=== PATIENT | male | born 1975 | race Caucasian/White ===

== ENCOUNTER 2017-04-26 20:12 | Emergency (ER) | payer SELFPAY ==
[~2017-04-26] VITALS: Ht 180.3 cm; Wt 99.8 kg
[2017-04-26 20:31] VITALS: BP 127/95
--- NOTE | 2017-04-26 20:42 | NUR ---
TO ER OF3
[2017-04-26] MEDS ORDERED: DICYCLOMINE HCL LIQUID 20 MG, ALUMINUM HYD/MAG/SIMETHICONE 30 ML, LIDOCAINE VISCOUS 2% ... PO ONE ×3 (21:00)
[2017-04-26] MEDS ORDERED: KETOROLAC 30 MG/ML VIAL IM ONE (21:00)
--- NOTE | 2017-04-26 21:00 | NUR ---
Patient being evaluated by physician jaziel de leon and carried out.
[2017-04-26 21:31] LABS: APPEARANCE,URINE CLEAR (CLEAR); BILIRUBIN,URINE NEGATIVE (NEGATIVE); BLOOD, URINE NEGATIVE (NEGATIVE); COLOR,URINE YELLOW (YELLOW); LEUKOCYTE ESTERASE ,URINE NEGATIVE (NEGATIVE); NITRITE, URINE NEGATIVE (NEGATIVE); PROTEIN,URINE NEGATIVE (NEGATIVE); UGLUCOSE NEGATIVE (NEGATIVE); UROBILINOGEN,URINE 0.2 EU/dL (0.2 - 1)
[2017-04-26 21:39] LABS: AMPHETAMINE, URINE NEG. ng/ml (NEG <=1000); BARBITURATE, URINE NEG. ng/ml (NEG <=200); BENZODIAZEPINE, URINE NEG. ng/mL (NEG <=200); CANNABINOID, URINE NEG. ng/mL (NEG <=50); COCAINE, URINE NEG. ng/mL (NEG <=300); OPIATE, URINE NEG. ng/mL (NEG <=2000); PHENCYCLIDINE SCREEN,URINE NEG. ng/mL (NEG <=25)
[2017-04-26 21:39] LABS: BASOPHILS # (AUTO) 0.3 K/uL (0.00-0.22); EOSINOPHILS # (AUTO) 0.4 K/uL (0-0.4); EOSINOPHILS % (AUTO) 4.4 % (0.0-4.0); HEMATOCRIT 38.8 % (36-52); HEMOGLOBIN 12.9 g/dL (12.0-18.0); LYMPHOCYTES # (AUTO) 2.7 K/uL (2.0-11.5); LYMPHOCYTES % (AUTO) 31.5 % (20.5-51.1); MEAN CORPUSCULAR HEMOGLOBIN 28 pg (27-31); MEAN CORPUSCULAR HGB CONC 33 g/dL (33-37); MEAN CORPUSCULAR VOLUME 85 fL (80-94); MONOCYTES # (AUTO) 0.4 K/uL (0.8-1.0); NEUTROPHILS # (AUTO) 4.7 K/uL (1.8-7.7); PLATELET COUNT (AUTO) 335 K/uL (140-450); RED BLOOD CELL COUNT(AUTO) 4.57 MIL/uL (4.20-6.10); RED CELL DISTRIBUTION WIDTH 12.9 % (11.6-13.7); WHITE BLOOD COUNT (AUTO) 8.5 K/uL (4.8-10.8)
[2017-04-26 21:48] LABS: ANION GAP 12.3 (8-16); CALCIUM 8.1 mg/dL (8.5-10.1); CARBON DIOXIDE 23.6 mmol/L (21-32); CREATININE 0.8 mg/dL (0.6-1.3); POTASSIUM 3.9 mmol/L (3.5-5.1)
[2017-04-26 21:54] LABS: ALBUMIN 3.3 g/dL (3.4-5.0); TOTAL BILIRUBIN 0.7 mg/dL (0.0-1.0); TOTAL PROTEIN, SERUM 6.9 g/dL (6.4-8.2)
[2017-04-26 22:27] VITALS: BP 127/95
--- NOTE | 2017-04-26 22:27 | NUR ---
Patient discharged with v/s stable. Written and verbal after care instructions given and explained. Patient alert, oriented and verbalized understanding of instructions. Ambulatory with steady gait. All questions addressed prior to discharge. ID band removed. Patient advised to follow up with PMD. Rx of naprosyn, norco given. Patient educated on indication of medication including possible reaction and side effects. Opportunity to ask questions provided and answered.
== END 2017-04-26 22:28 | disposition home or self-care (01) ==
LOC: MED 20:12
DX: M54.5 Low back pain (principal)
CPT/HCPCS: 36415; 74176; 80053; 80305; 81003; 83690; 85025; 96372; 99285; J1885

== ENCOUNTER 2018-08-20 16:14 | Emergency (ER) | payer SELFPAY ==
[~2018-08-20] VITALS: Ht 180.3 cm; Wt 98.5 kg
[2018-08-20 16:39] VITALS: BP 183/84
--- NOTE | 2018-08-20 16:43 | NUR ---
AMBULATES BACK TO THE LOBBY WAITING FOR AVAILABLE BED
--- NOTE | 2018-08-20 18:13 | NUR ---
PATIENT PRESENTS TO ED WITH THE CHIEF C/O LOWER BACK PAIN. PT STATES PAIN STARTED 2 WEEKS AGO. DENIES N/V/D; SKIN IS PINK/WARM/DRY; AAOX4 WITH EVEN AND STEADY GAIT; LUNGS CLEAR BL; HR EVEN AND REGULAR; PT DENIES ANY FEVER, CP, SOB, OR COUGH AT THIS TIME; PATIENT STATES LOWER BACK PAIN OF 9/10 THAT RADIATES TO LEFT BUTTOCK AT THIS TIME; VSS; PATIENT POSITIONED FOR COMFORT; HOB ELEVATED; BEDRAILS UP X2; BED DOWN. ER MD MADE AWARE OF PT STATUS.
--- NOTE | 2018-08-20 19:22 | NUR ---
REPORT GIVEN TO PHILATELIC CONSULTANT RN BALDOMERO FOR CONTINUITY OF CARE. PT ON STABLE CONDITION.
[2018-08-20] MEDS: predniSONE 20 MG TAB PO ONE (19:27)
[2018-08-20] MEDS: MORPHINE SULFATE 2 MG/ML SYR IM ONE (19:28)
--- NOTE | 2018-08-20 19:37 | NUR ---
RECEIVED REPORT FROM AM NURSE. PT RESTING IN BED, VSS, PT REPORTS 9/10 BACK PAIN FROM [place], MEDS GIVEN, WILL REASSESS.
[2018-08-20 19:49] VITALS: BP 132/75
--- NOTE | 2018-08-20 19:50 | NUR ---
Patient discharged with v/s stable. Written and verbal after care instructions given and explained. Patient alert, oriented and verbalized understanding of instructions. Ambulatory with steady gait. All questions addressed prior to discharge. ID band removed. Patient advised to follow up with PMD. Rx of ROBAXIN 500MG, MEDROL 4MG, TRAMADOL 50MG, given. Patient educated on indication of medication including possible reaction and side effects. Opportunity to ask questions provided and answered.
== END 2018-08-20 19:49 | disposition home or self-care (01) ==
LOC: MED 16:14
DX: G89.29 Other chronic pain (principal); M54.42 Lumbago with sciatica, left side
CPT/HCPCS: 81002; 96372; 99283; J2270; J7512

== ENCOUNTER 2019-03-26 20:25 | Emergency (ER) | payer MEDICAID ==
[~2019-03-26] VITALS: Ht 180.3 cm; Wt 108.9 kg
[2019-03-26 20:41] VITALS: BP 140/90
--- NOTE | 2019-03-26 20:41 | NUR ---
TO BED # 12 AMBULATORY
--- NOTE | 2019-03-26 20:52 | NUR ---
43 y/o M presented to ED with R eye pain x 2 days, but pain is worse today. AAOx4. 8/10 pain, burning pain. R eye injected. no discharge noted. expressed light sensitivity. PERRL presented. bed in lowest position. ERMD notified. Will continue to monitor.
[2019-03-26] MEDS ORDERED: TETRACAINE HCL/PF 0.5% OPTH 4 ML BTL OP ONE (21:15)
[2019-03-26] MEDS ORDERED: FLUORESCEIN OPTH STRIP 0.6 MG OP ONE (21:15)
--- NOTE | 2019-03-26 22:45 | NUR ---
family at bedside. Will continue to monitor.
--- NOTE | 2019-03-26 23:05 | NUR ---
Patient discharged with v/s stable. Written and verbal after care instructions given and explained. Patient alert, oriented and verbalized understanding of instructions. Ambulatory with steady gait. All questions addressed prior to discharge. ID band removed. Patient advised to follow up with PMD. Rx of Gentamicin and Ketorolac given. Patient educated on indication of medication including possible reaction and side effects. Opportunity to ask questions provided and answered.
== END 2019-03-26 23:05 | disposition home or self-care (01) ==
LOC: MED 20:25
DX: H10.9 Unspecified conjunctivitis (principal)
CPT/HCPCS: 99283

== ENCOUNTER 2019-04-01 17:05 | Emergency (ER) | payer MEDICAID ==
[~2019-04-01] VITALS: Ht 180.3 cm; Wt 111.3 kg
[2019-04-01 17:07] VITALS: BP 132/70
--- NOTE | 2019-04-01 17:13 | NUR ---
PATIENT AMBULATED TO BED 3.
--- NOTE | 2019-04-01 17:30 | NUR ---
C/O RIGHT EYE REDNESS, SWOLLEN & PAIN X 1 WEEK. MED HX : DENIES
[2019-04-01 18:20] VITALS: BP 132/70
--- NOTE | 2019-04-01 18:22 | NUR ---
Patient discharged with v/s stable. Written and verbal after care instructions given and explained. Patient verbalized understanding. Ambulatory with steady gait. All questions addressed prior to discharge. Advised to follow up with PMD.
== END 2019-04-01 18:22 | disposition home or self-care (01) ==
LOC: MED 17:05
DX: H20.9 Unspecified iridocyclitis (principal)
CPT/HCPCS: 99281

== ENCOUNTER 2020-08-29 16:14 | Emergency (ER) | payer SELFPAY ==
[~2020-08-29] VITALS: Ht 177.8 cm; Wt 104.3 kg
[2020-08-29 16:19] VITALS: BP 120/95
--- NOTE | 2020-08-29 16:25 | NUR ---
PT C/O PROGRESSIVELY WORSENING LEFT FLANK PAIN ACCOMPAINED BY DSYURIA FOR 2 WEEKS. DENIES FEVER, CHILLS, HEMATURIA, BURNING/PAINFUL URINATION. DENIES TRAUMA/INJURY TO BACK. PT STATES THE PAIN WAKEN HIM UP DURING SLEEP. POSITIVE LEFT CVAT ON PALPATION. DENIES N/V/D; SKIN IS PINK/WARM/DRY; AAOX4 WITH EVEN AND STEADY GAIT; LUNGS CLEAR BL; HR EVEN AND REGULAR; PT DENIES ANY FEVER, CP, SOB, OR COUGH AT THIS TIME; PATIENT STATES PAIN OF 10/10 AT THIS TIME; VSS; PATIENT POSITIONED FOR COMFORT; HOB ELEVATED; BEDRAILS UP X1; BED DOWN. ER MD MADE AWARE OF PT STATUS.
--- NOTE | 2020-08-29 16:25 | NUR ---
PT TAKEN TO BED 6.
[2020-08-29 17:37] LABS: APPEARANCE,URINE CLEAR (CLEAR); BILIRUBIN,URINE NEGATIVE (NEGATIVE); BLOOD, URINE NEGATIVE (NEGATIVE); COLOR,URINE YELLOW (YELLOW); LEUKOCYTE ESTERASE ,URINE NEGATIVE (NEGATIVE); NITRITE, URINE NEGATIVE (NEGATIVE); UGLUCOSE NEGATIVE (NEGATIVE)
[2020-08-29 17:55] LABS: BASOPHILS # (AUTO) 0.1 K/uL (0.00-0.22); BASOPHILS % (AUTO) 0.8 % (0.0-2.0); EOSINOPHILS % (AUTO) 0.5 % (0.0-4.0); HEMATOCRIT 44.7 % (36-52); HEMOGLOBIN 15.2 g/dL (12.0-18.0); LYMPHOCYTES # (AUTO) 2.2 K/uL (2.0-11.5); LYMPHOCYTES % (AUTO) 23.7 % (20.5-51.1); MEAN CORPUSCULAR HEMOGLOBIN 29 pg (27-31); MEAN CORPUSCULAR HGB CONC 34 g/dL (33-37); MEAN CORPUSCULAR VOLUME 86.6 fL (80-94); MONOCYTES # (AUTO) 0.8 K/uL (0.8-1.0); MONOCYTES % (AUTO) 9.2 % (1.7-9.3); NEUTROPHILS % (AUTO) 65.8 % (42.2-75.2); PLATELET COUNT (AUTO) 273 K/uL (140-450); RED BLOOD CELL COUNT(AUTO) 5.17 MIL/uL (4.20-6.10); RED CELL DISTRIBUTION WIDTH 13.4 % (11.6-13.7); WHITE BLOOD COUNT (AUTO) 9.2 K/uL (4.8-10.8)
[2020-08-29 18:09] LABS: ALBUMIN 4.5 g/dL (3.4-5.0); ANION GAP 12.5 (8-16); CARBON DIOXIDE 26.6 mmol/L (21-32); CREATININE 1.1 mg/dL (0.6-1.3); POTASSIUM 4.1 mmol/L (3.5-5.1); TOTAL BILIRUBIN 1.9 mg/dL (0.0-1.0)
[2020-08-29 18:35] VITALS: BP 147/88
--- NOTE | 2020-08-29 18:35 | NUR ---
Patient discharged with v/s stable. Written and verbal after care instructions given and explained. Patient alert, oriented and verbalized understanding of instructions. Ambulatory with steady gait. All questions addressed prior to discharge. ID band removed. Patient advised to follow up with PMD. Rx of Valium and Ibuprofen given. Patient educated on indication of medication including possible reaction and side effects. Opportunity to ask questions provided and answered.
== END 2020-08-29 18:35 | disposition home or self-care (01) ==
LOC: MED 16:14
DX: M54.9 Dorsalgia, unspecified (principal); R10.9 Unspecified abdominal pain; R34 Anuria and oliguria
CPT/HCPCS: 36415; 80053; 81003; 83690; 85025; 99284

== ENCOUNTER 2020-11-29 10:55 | Emergency (ER) | payer SELFPAY ==
[~2020-11-29] VITALS: Ht 180.3 cm; Wt 99.8 kg
[2020-11-29 11:00] VITALS: BP 145/73
--- NOTE | 2020-11-29 11:10 | NUR ---
C/O LEFT EYE PAIN , SENSITIVE TO LIGHT X 2 DAYS. DENIES TRAUMA/INJURY. DENIES BLURRED VISION. PMH: DENIES
[2020-11-29] MEDS ORDERED: TETRACAINE 1% 2 ML AMP INJ ONE (11:20)
[2020-11-29] MEDS ORDERED: FLUORESCEIN OPTH STRIP 1 MG OP ONE (11:20)
[2020-11-29] MEDS ORDERED: TETRACAINE HCL/PF 0.5% OPTH 4 ML BTL ONE (11:21)
[2020-11-29 12:20] VITALS: BP 145/73
== END 2020-11-29 12:21 | disposition home or self-care (01) ==
LOC: MED 10:55
DX: H20.9 Unspecified iridocyclitis (principal)
CPT/HCPCS: 99283; J3490

== ENCOUNTER 2021-08-01 01:18 | Emergency (ER) | payer SELFPAY ==
[~2021-08-01] VITALS: Ht 180.3 cm; Wt 108.9 kg
[2021-08-01 01:23] VITALS: BP 130/80
--- NOTE | 2021-08-01 01:27 | NUR ---
PT AMBULATED TO LOBBY WITH STEADY AND EVEN GAIT.
--- NOTE | 2021-08-01 01:58 | NUR ---
PT AMBULATED TO BED 12 WITH STEADY AND EVEN GAIT.
--- NOTE | 2021-08-01 01:59 | NUR ---
Fracisco ortiz in [facility] - 08/01/21 at 0201 by JULIO PT TAKEN TO BED 12
--- NOTE | 2021-08-01 02:00 | NUR ---
ERMD AT BEDSIDE.
--- NOTE | 2021-08-01 02:01 | NUR ---
Fracisco ortiz in [facility] - 08/01/[address] at [address] Araya examining patient.
[2021-08-01] MEDS ORDERED: IBUP-2213 PO (02:10)
[2021-08-01] MEDS ORDERED: ACET-8386 PO (02:10)
[2021-08-01] MEDS: KETOROLAC 60 MG/2 ML VIAL IM ONE (02:13)
[2021-08-01 02:20] VITALS: BP 130/80
--- NOTE | 2021-08-01 02:20 | NUR ---
Patient discharged with v/s stable. Written and verbal after care instructions given and explained. Patient alert, oriented and verbalized understanding of instructions. Ambulatory with steady gait. All questions addressed prior to discharge. ID band removed. Patient advised to follow up with PMD. Rx of NORCO, MOTRIN given. Patient educated on indication of medication including possible reaction and side effects. Opportunity to ask questions provided and answered.
== END 2021-08-01 02:20 | disposition home or self-care (01) ==
LOC: MED 01:18
DX: M54.5 Low back pain (principal)
CPT/HCPCS: 96372; 99283; J1885

== ENCOUNTER 2022-01-20 17:21 | Emergency (ER) | payer BC ==
[~2022-01-20] VITALS: Ht 180.3 cm; Wt 112.0 kg
[~2022-01-20 17:21] MED LIST: ACET-8386 PO; IBUP-2213 PO
[2022-01-20 17:49] VITALS: BP 160/82
[2022-01-20] MEDS ORDERED: NACL 0.9% 1,000 ML IV ONE (18:10)
[2022-01-20] MEDS ORDERED: KETOROLAC 15 MG/ML VIAL IVP ONE (18:10)
--- NOTE | 2022-01-20 18:53 | NUR ---
BLOOD COLLECTED WALKED TO LAB
--- NOTE | 2022-01-20 19:08 | NUR ---
46 y/o Male BIB self for c/o of flank pain and dizzyness x 2- 3 days. Denies any recent trauma or falls. States his urine appears more concentrated and with a foul odor. Denies N/V/D and dysuria/hematuria. Has not had any STD checks in a few years. PmHx: sciatica, kidney infections Home meds: Denies Allergies: Denies
--- NOTE | 2022-01-20 19:23 | NUR ---
HANDOFF REPORT GIVEN TO DIMITRIOS POOLE.
[2022-01-20] MEDS ORDERED: ACETAMINOPHEN EXTRA STRENGTH 500 MG TAB PO ONE (19:30)
[2022-01-20 19:32] LABS: LYMPHOCYTES # (AUTO) 2.2 K/uL (2.0-11.5); MEAN CORPUSCULAR HEMOGLOBIN 29 pg (27-31); MEAN CORPUSCULAR HGB CONC 34 g/dL (33-37); MEAN CORPUSCULAR VOLUME 85.4 fL (80-94); MONOCYTES # (AUTO) 0.4 K/uL (0.8-1.0)
[2022-01-20 19:42] LABS: BASOPHILS % (AUTO) 0.6 % (0.0-2.0); EOSINOPHILS # (AUTO) 0.1 K/uL (0-0.4); EOSINOPHILS % (AUTO) 2.2 % (0.0-4.0); HEMATOCRIT 41.9 % (36-52); HEMOGLOBIN 14.3 g/dL (12.0-18.0); LYMPHOCYTES % (AUTO) 32.3 % (20.5-51.1); MONOCYTES % (AUTO) 6.3 % (1.7-9.3); NEUTROPHILS % (AUTO) 58.6 % (42.2-75.2); PLATELET COUNT (AUTO) 204 K/uL (140-450); RED BLOOD CELL COUNT(AUTO) 4.91 MIL/uL (4.20-6.10); RED CELL DISTRIBUTION WIDTH 13.3 % (11.6-13.7); WHITE BLOOD COUNT (AUTO) 6.8 K/uL (4.8-10.8)
[2022-01-20] MEDS ORDERED: LIDOCAINE 5% 1 EA PATCH TP ONE (19:44)
--- NOTE | 2022-01-20 19:50 | NUR ---
CLARIFIED WITH , ORDER FOR LIDODERM IS FOR NOW NOT 9AM.
--- NOTE | 2022-01-20 20:15 | NUR ---
SPOKE TO JUDE FROM LAB TO FOLLOW UP WITH PENDING CMP, STATED HE WILL CHECK AND GIVE A CALL BACK.
[2022-01-20 20:39] LABS: ALBUMIN 3.7 g/dL (3.4-5.0); CREATININE 0.8 mg/dL (0.6-1.3); TOTAL BILIRUBIN 1.2 mg/dL (0.0-1.0)
[2022-01-20] MEDS ORDERED: NAPR-1704 PO (20:54)
[2022-01-20] MEDS ORDERED: LID5T TP (20:55)
[2022-01-20] MEDS ORDERED: BACL10TA4 PO (20:55)
[2022-01-20 21:25] VITALS: BP 157/84
--- NOTE | 2022-01-20 21:25 | NUR ---
Patient discharged with v/s stable. Written and verbal after care instructions given and explained. Patient alert, oriented and verbalized understanding of instructions. Ambulatory with steady gait. All questions addressed prior to discharge. ID band removed. Patient advised to follow up with PMD. Rx of lidoderm, baclofen and naprosyn given. Patient educated on indication of medication including possible reaction and side effects. Opportunity to ask questions provided and answered.
[2022-01-21] MEDS ORDERED: LIDOCAINE 5% 1 EA PATCH TP SCH (09:00)
== END 2022-01-20 21:25 | disposition home or self-care (01) ==
LOC: MED 17:21
DX: M54.50 Low back pain, unspecified (principal); R35.0 Frequency of micturition; E86.0 Dehydration; Z79.899 Other long term (current) drug therapy
CPT/HCPCS: 36415; 80053; 81002; 83690; 85025; 96361; 96374; 99283; J1885; J7030

== ENCOUNTER 2023-09-08 10:47 | Emergency (ER) | payer BC, OTHER ==
[~2023-09-08] VITALS: Ht 177.8 cm; Wt 104.3 kg
[~2023-09-08 10:47] MED LIST changes: -ACET-8386 PO; +ACET-8905 PO; +BACL10TA4 PO; +LID5T TP; +NAPR-1704 PO
[2023-09-08] MEDS ORDERED: CYCLOBENZAPRINE 10 MG TAB PO ONE (11:05)
[2023-09-08] MEDS ORDERED: KETOROLAC 30 MG/ML VIAL IM ONE (11:05)
[2023-09-08 11:06] VITALS: BP 131/77; PULSE 69; RESP 18; TEMP 98; O2SAT 97
[2023-09-08] MEDS ORDERED: IBUP-1842 PO (11:13)
[2023-09-08] MEDS ORDERED: CYCL10TA33 PO (11:13)
[2023-09-08] MEDS ORDERED: EMLAC TP (11:14)
[2023-09-08] MEDS ORDERED: LIDOCAINE 5% 1 EA PATCH TP ONE (11:30)
[2023-09-08] MEDS: LIDOCAINE 5% 1 EA PATCH TP SCH ×2 (11:31→12:01)
[2023-09-08 12:06] VITALS: BP 129/67; PULSE 69; RESP 18; TEMP 98; O2SAT 97
== END 2023-09-08 12:04 | disposition home or self-care (01) ==
LOC: MED 10:47
DX: M54.9 Dorsalgia, unspecified (principal); Z79.899 Other long term (current) drug therapy; Z79.1 Long term (current) use of non-steroidal anti-inflammatories (NSAID)
CPT/HCPCS: 96372; 99283; J1885

== ENCOUNTER 2024-03-15 07:22 | Emergency (ER) | payer OTHER ==
[~2024-03-15] VITALS: Ht 180.3 cm; Wt 113.9 kg
[~2024-03-15 07:22] MED LIST changes: +CYCL10TA33 PO; +EMLAC TP; +IBUP-1842 PO
[2024-03-15 07:40] VITALS: BP 143/88; PULSE 68; RESP 18; TEMP 97.8; O2SAT 98
[2024-03-15] MEDS ORDERED: IBUP-2218 PO (07:52)
[2024-03-15] MEDS ORDERED: DICL20GE TP (07:52)
[2024-03-15] MEDS ORDERED: CYCL-711 PO (07:52)
[2024-03-15] MEDS ORDERED: ACET-10509 PO (07:52)
[2024-03-15] MEDS: KETOROLAC 60 MG/2 ML VIAL IM ONE (07:58)
[2024-03-15] MEDS: LIDOCAINE 5% 1 EA PATCH TP ONE (08:00)
[2024-03-15 08:21] VITALS: BP 143/88; PULSE 68; RESP 18; TEMP 97.8; O2SAT 98
== END 2024-03-15 08:22 | disposition home or self-care (01) ==
LOC: MED 07:22
DX: M54.50 Low back pain, unspecified (principal); R03.0 Elevated blood-pressure reading, without diagnosis of hypertension; Z79.1 Long term (current) use of non-steroidal anti-inflammatories (NSAID); Z79.899 Other long term (current) drug therapy
CPT/HCPCS: 96372; 99283; J1885